=== PATIENT | male | born 1990 | race African-American/Black ===

== ENCOUNTER 2020-04-21 07:33 | Observation (INO) | payer SELFPAY ==
[2020-04-21] MEDS ORDERED: Ketorolac Tromethamine 30 MG/ML VIAL ONE (09:51)
[2020-04-21] MEDS ORDERED: Ondansetron PF 4 MG/2 ML Vial ONE (09:51)
[2020-04-21] MEDS ORDERED: Morphine 4 MG/ML VIAL ONE (09:51)
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
== END 2020-04-21 15:45 | disposition home or self-care (01) ==
LOC: ERS 07:33 → ERHOLD 09:36
PROVIDERS: ADMIT Surgery; ATTEND Surgery
DX: S82.54XA Nondisplaced fracture of medial malleolus of right tibia, initial encounter for closed fracture (principal); S30.1XXA Contusion of abdominal wall, initial encounter; F14.10 Cocaine abuse, uncomplicated; F12.10 Cannabis abuse, uncomplicated; F10.10 Alcohol abuse, uncomplicated; F17.200 Nicotine dependence, unspecified, uncomplicated; V47.5XXA Car driver injured in collision with fixed or stationary object in traffic accident, initial encounter
CPT/HCPCS: 96374; 96375; J1885; J2270; J2405